=== PATIENT | male | born 1950 | race Two or more races ===

== ENCOUNTER 2017-10-22 11:38 | Outpatient (CLI) | payer OTHER ==
[~2017-10-22 11:38] MED LIST: PROCARDIA90 MG/BLIS PO; TOPROL XL100 MG PO
== END 2017-10-22 11:40 | disposition home or self-care (01) ==
LOC: LAB 11:38
DX: E88.81 Metabolic syndrome and other insulin resistance (principal)

== ENCOUNTER 2019-02-12 08:57 | Outpatient (CLI) | payer OTHER | END 2019-02-12 15:57 | disposition home or self-care (01) | LOC: LAB 08:57 | DX: E11.9 Type 2 diabetes mellitus without complications (principal); I10 Essential (primary) hypertension; E03.8 Other specified hypothyroidism; E78.1 Pure hyperglyceridemia ==

== ENCOUNTER 2019-02-27 06:49 | Outpatient (CLI) | payer OTHER | END 2019-02-27 15:11 | disposition home or self-care (01) | LOC: LAB 06:49 | DX: E11.9 Type 2 diabetes mellitus without complications (principal) ==

== ENCOUNTER 2019-12-08 07:07 | Outpatient (CLI) | payer OTHER | END 2019-12-08 07:27 | disposition home or self-care (01) | LOC: LAB 07:07 | PROVIDERS: ATTEND Pediatrics Neonatal-Perinatal Medicine | DX: Z20.828 Contact with and (suspected) exposure to other viral communicable diseases (principal); R05 Cough; E88.81 Metabolic syndrome and other insulin resistance; R06.2 Wheezing; R50.9 Fever, unspecified ==

== ENCOUNTER → 2020-01-12 08:00 | Outpatient (CLI) | payer OTHER | END | disposition home or self-care (01) | LOC: PPH VACUNA 08:00 | DX: Z23 Encounter for immunization (principal) ==

== ENCOUNTER 2020-03-21 10:24 | Outpatient (CLI) | payer OTHER | END 2020-03-21 15:00 | disposition home or self-care (01) | LOC: LAB 10:24 | DX: Z20.828 Contact with and (suspected) exposure to other viral communicable diseases (principal); Z03.818 Encounter for observation for suspected exposure to other biological agents ruled out; Z11.59 Encounter for screening for other viral diseases ==

== ENCOUNTER 2020-05-21 09:26 | Outpatient (CLI) | payer OTHER | END 2020-05-21 09:53 | disposition home or self-care (01) | LOC: LAB 09:26 | DX: I10 Essential (primary) hypertension (principal); Z02.79 Encounter for issue of other medical certificate ==

== ENCOUNTER 2020-12-05 14:18 | Outpatient (CLI) | payer OTHER | END 2020-12-05 15:00 | disposition home or self-care (01) | LOC: LAB 14:18 | PROVIDERS: ATTEND Pediatrics Neonatal-Perinatal Medicine | DX: U07.1 COVID-19 (principal); R06.02 Shortness of breath; R05 Cough; Z03.818 Encounter for observation for suspected exposure to other biological agents ruled out ==

== ENCOUNTER 2020-12-06 11:00 | Outpatient (CLI) | payer OTHER | END 2020-12-06 13:00 | disposition home or self-care (01) | LOC: ASH CLINIC 11:00 | PROVIDERS: ATTEND Emergency Medicine | DX: Z23 Encounter for immunization (principal); U07.1 COVID-19 ==

== ENCOUNTER → 2020-12-13 | Outpatient (CLI) | payer OTHER | END | disposition home or self-care (01) | LOC: LAB 10:17 | PROVIDERS: ATTEND Pediatrics Neonatal-Perinatal Medicine | DX: Z20.818 Contact with and (suspected) exposure to other bacterial communicable diseases (principal) ==

== ENCOUNTER 2021-01-27 08:40 | Outpatient (CLI) | payer OTHER | END 2021-01-27 09:00 | disposition home or self-care (01) | LOC: PPH VACUNA 08:40 | PROVIDERS: ATTEND Emergency Medicine Pediatric Emergency Medicine | DX: Z23 Encounter for immunization (principal) ==

== ENCOUNTER 2021-03-16 08:00 | Outpatient (CLI) | payer OTHER | END 2021-03-16 08:30 | disposition home or self-care (01) | LOC: PPH VACUNA 08:00 | PROVIDERS: ATTEND Emergency Medicine Pediatric Emergency Medicine | DX: Z23 Encounter for immunization (principal) ==

== ENCOUNTER 2021-08-04 08:00 | Outpatient (CLI) | payer OTHER | END 2021-08-04 08:30 | disposition home or self-care (01) | LOC: PPH VACUNA 08:00 | PROVIDERS: ATTEND Emergency Medicine Pediatric Emergency Medicine | DX: Z23 Encounter for immunization (principal) ==

== ENCOUNTER 2022-01-10 09:54 | Outpatient (CLI) | payer OTHER | END 2022-01-10 09:59 | disposition home or self-care (01) | LOC: PPH VACUNA 09:54 | PROVIDERS: ATTEND Emergency Medicine Pediatric Emergency Medicine | DX: Z23 Encounter for immunization (principal) ==

== ENCOUNTER 2022-01-10 10:00 | Outpatient (CLI) | payer OTHER | END 2022-01-10 10:10 | disposition home or self-care (01) | LOC: PPH VACUNA 10:00 | PROVIDERS: ATTEND Emergency Medicine Pediatric Emergency Medicine | DX: Z23 Encounter for immunization (principal) ==

== ENCOUNTER 2022-07-10 12:00 | Outpatient (CLI) | payer OTHER | END 2022-07-10 12:01 | disposition home or self-care (01) | LOC: LAB 12:00 | PROVIDERS: ATTEND Internal Medicine Rheumatology | DX: M15.8 Other polyosteoarthritis (principal) ==

== ENCOUNTER → 2023-03-28 07:00 | Outpatient (CLI) | payer OTHER ==
[2023-03-28 10:58] LABS: ob NEGATIVE (NEGATIVE)
== END | disposition home or self-care (01) ==
LOC: LAB 07:00
PROVIDERS: ATTEND Pediatrics
DX: Z11.2 Encounter for screening for other bacterial diseases (principal)

== ENCOUNTER 2023-07-30 10:38 | Outpatient (CLI) | payer OTHER ==
[~2023-07-30 10:38] MED LIST changes: +NIFE60TA3 PO; +TOPROL XL100 M1 PO
[2023-07-30 11:26] LABS: HEMATOCRIT 40.2 % (39.0-48.0); MEAN CELL VOLUME 91.9 fL (80.0-100.00); MEAN CORPUSCULAR HGB CONC 34.9 g/dl (32.0-36.0); PLATELET COUNT 182 K/uL (150-450); RED BLOOD COUNT 4.38 M/uL (4.00-6.00); RED CELL DISTRIBUTION WIDTH 13.6 % (11.5-14.5)
[2023-07-30 11:41] LABS: ERYTHROCYTE SEDIMENTATION RATE 17 mm/hr
[2023-07-30 11:53] LABS: PH,URINE 5.5 (5.0-8.0); URINE APPEARANCE Clear; URINE BILIRRUBIN Negative (NEGATIVE); URINE BLOOD Negative; URINE COLOR Yellow; URINE GLUCOSE Negative (NEGATIVE); URINE LEUKOCYTE Negative; URINE NITRATE Negative; URINE PROTEIN Negative (NEGATIVE)
[2023-07-30 11:54] LABS: URINE BACTERIA 6.2 uL (0.0-1933); URINE WBC 2.6 uL (0.0-23.2)
[2023-07-30 12:05] LABS: URINE RBC 1.1 uL (0.0-20.8)
[2023-07-30 12:33] LABS: BILIRUBIN TOTAL 0.68 mg/dL (0.3-1.2); CALCIUM 9.7 mg/dL (8.5-10.1); CHOL HDL RATIO 2.8 (0-5.0); CREATININE SERUM 0.95 mg/dL (0.70-1.30); GFR 77.93; GLOBULINA 3.3 G/DL (2.4-3.5); POTASSIUM 4.03 mEq/L (3.5-5.1); PROSTATIC SPECIFIC ANTIGEN 0.371 NG/ML (0.010-4.00); T4 TOTAL 9.66 UG/DL (4.5-12.1); TOTAL PROTEIN 7.3 gm/dL (6.4-8.2); TSH 1.48 uIU/mL (0.358-3.74)
[2023-07-30 13:23] LABS: T3 TOTAL 1.34 ng/ml (0.846-2.02); VITAMIN D3 25 HYDROXY 27.83 ng/ml (30-120)
[2023-07-30 13:48] LABS: URIC ACID 5.4 mg/dL (3.5-8.5)
== END 2023-07-30 10:39 | disposition home or self-care (01) ==
LOC: LAB 10:38
PROVIDERS: ATTEND Internal Medicine Cardiovascular Disease
DX: I10 Essential (primary) hypertension (principal); E11.9 Type 2 diabetes mellitus without complications; E03.9 Hypothyroidism, unspecified; E78.2 Mixed hyperlipidemia; N40.0 Benign prostatic hyperplasia without lower urinary tract symptoms; E55.9 Vitamin D deficiency, unspecified; E79.0 Hyperuricemia without signs of inflammatory arthritis and tophaceous disease; M79.7 Fibromyalgia

== ENCOUNTER 2024-01-24 07:23 | Outpatient (CLI) | payer OTHER | END 2024-01-24 07:24 | disposition home or self-care (01) | LOC: NUCLEAR 07:23 | DX: I20.9 Angina pectoris, unspecified (principal) | CPT/HCPCS: 78452; 93017; A9500 ==

== ENCOUNTER 2024-11-21 09:12 | Outpatient (CLI) | payer OTHER ==
[2024-11-21 09:43] LABS: BASO % 1.0 % (0.1-1.2); EOS # 0.39 (0.04-0.54); EOS % 4.3 % (0.7-7.0); LYMPH # 3.28 (1.18-3.74); LYMPH % 35.8 % (19.3-53.1); MEAN PLATELET VOLUME 10.30 fl (9.4-12.4); MONO # 0.85 (0.24-0.82); MONO % 9.3 % (4.7-12.5); NEUT # 4.52 (1.56-6.13); NEUT % 49.3 % (34.0-71.1); RED CELL DISTRIBUTION WIDTH 12.8 % (11.6-14.4)
[2024-11-21 09:45] LABS: URINE APPEARANCE Clear; URINE BILIRRUBIN Negative (NEGATIVE); URINE BLOOD Negative; URINE COLOR Yellow; URINE GLUCOSE Negative (NEGATIVE); URINE KETONE Negative (NEGATIVE); URINE LEUKOCYTE Negative; URINE NITRATE Negative; URINE PROTEIN Negative (NEGATIVE); URINE UROBILINOGEN 1.0 E.U./dl
[2024-11-21 09:49] LABS: URINE RBC 2.0 uL (0.0-20.8)
[2024-11-21 10:10] LABS: URINE BACTERIA 1.1 uL (0.0-1933); URINE CAST 0.29 uL (0.0-1.40); URINE EPITHELIAL CELLS 0.3 uL (0.0-38.8); URINE WBC 0.3 uL (0.0-23.2)
[2024-11-21 11:12] LABS: BUN CREA RATIO 30.0 (7.0-25.0); CHOL HDL RATIO 2.8 (0-5.0); CREATININE SERUM 0.86 mg/dL (0.70-1.30); GFR 86.93; GLUCOSE FASTING 95.0 mg/dL (65-100); HDL 38.0 mg/dl (40-60); LDL 56.0 mg/dl (0-130); OSMOLALITY SERUM 288.0 MOSM/KG (275-295); VLDL 11.0 (0-39)
== END 2024-11-21 09:18 | disposition home or self-care (01) ==
LOC: LAB 09:12
PROVIDERS: ATTEND Internal Medicine Cardiovascular Disease
DX: I10 Essential (primary) hypertension (principal); E11.9 Type 2 diabetes mellitus without complications; E03.9 Hypothyroidism, unspecified; E78.2 Mixed hyperlipidemia

== ENCOUNTER 2025-04-02 10:48 | Outpatient (CLI) | payer OTHER | END 2025-04-02 10:56 | disposition home or self-care (01) | LOC: RAD 10:48 | PROVIDERS: ATTEND Internal Medicine Rheumatology | DX: M15.8 Other polyosteoarthritis (principal) ==